=== PATIENT | male | born 1990 | race Caucasian/White ===

== ENCOUNTER 2017-07-11 16:54 | Emergency (ER) | payer OTHER ==
[~2017-07-11] VITALS: Ht 180.3 cm; Wt 107.0 kg
[2017-07-11 17:10] VITALS: TEMP 36.8; Ht 180.3 cm; Wt 107.0 kg
[2017-07-11] MEDS ORDERED: HYDROCODONE/ACETAMOPHEN 5/325MG TAB PO STA (17:20)
[2017-07-11] MEDS ORDERED: CYCLOBENZAPRINE HCL 10 MG TAB PO STA (17:20)
[2017-07-11] MEDS ORDERED: KETOROLAC TROMETHAMINE 60 MG/2 ML VIAL IM STA (17:20)
[2017-07-11] MEDS ORDERED: MoRPHine SULFATE 10 MG/ML CARP/VIAL IM STA (18:22)
--- NOTE | 2017-07-11 18:23 | DIAGNOSTIC IMAGING REPORT ---
L-SPINE MIN 4 VIEWS ROUTINE CLINICAL HISTORY: Low back pain. Possible injury. COMPARISON: None FINDINGS: Alignment of the lumbar spine is anatomic. Vertebral body heights are maintained. There is no fracture or suspicious lesion. There is minimal disc space noted with osteophytosis at L5-S1. Facet joints are intact. IMPRESSION: 1. No acute lumbar spine fracture or subluxation. 2. Mild disc space narrowing and osteophytosis at L5-S1. Electronically signed by: Raul Youssef M.D. 07/11/2017 6:21 PM Dictated Date/Time: 07/11/2017 6:20 PM
[2017-07-11] MEDS ORDERED: ONDANSETRON 4MG OD TAB PO ONE (18:30)
--- NOTE | 2017-07-11 19:15 | EMERGENCY ROOM VISIT NOTE ---
ED Visit Note First contact with patient: 17:15 CHIEF COMPLAINT: Low back pain HISTORY OF PRESENT ILLNESS: This 26-year-old male presents the ER with chief complaint of low back pain. The patient states that he has been playing a lot of basketball over the last 3 weeks. On Thursday he started getting pain in his low back and it has been getting progressively worse. He states it hurts with any type of movement or with walking. The patient states he had initially injured his back when he was in high school and had some chronic pain but has not had any pain recently. The patient denies any pain radiating down his legs or any numbness and tingling in his legs. The patient denies any loss of bowel or bladder control. The patient denies any urinary symptoms of frequency, urgency, dysuria or hematuria. REVIEW OF SYSTEMS:6 system review was performed and was negative unless stated otherwise in history of present illness. PMH: The patient is healthy; prior back injury as a teenager. SOCIAL HISTORY: Patient denies tobacco use. The patient does admit to smoking marijuana occasionally. He also admits to occasional alcohol use. PHYSICAL EXAM: Vital Signs normal: Reviewed Nurse's notes and agree. GEN.: 26- year-old male appears uncomfortable secondary to back pain. MENTAL STATUS: Alert and oriented in no acute distress. LUMBAR SPINE: No gross bony abnormality noted. Patient is nontender to palpation over the spinous processes. He is tender to palpation over the paravertebral regions bilaterally.. Decreased range of motion in all directions secondary to pain. Muscle strength is 5 out of 5 bilateral lower extremities and symmetrical. NEURO : Patient is able to heel and toe walk without difficulty. I lateral patellar and Achilles reflexes are 2+. Sensation is intact to pinprick bilateral lower extremities. Negative straight leg raise bilaterally. EMERGENCY DEPARTMENT COURSE: The patient was evaluated. Patient was given Toradol 60 mg IM, [place] 5/325 mg 2 tablets by mouth for pain as well as Flexeril 10 mg by mouth. The patient was reevaluated and stated he was still in significant pain and therefore he was given morphine 6 mg IM and Zofran 4 mg ODT for associated nausea. X-ray of the lumbar spine was ordered and interpreted by the radiologist and myself. DIAGNOSTICS:L-SPINE MIN 4 VIEWS ROUTINE CLINICAL HISTORY: Low back pain. Possible injury. COMPARISON: None FINDINGS: Alignment of the lumbar spine is anatomic. Vertebral body heights are maintained. There is no fracture or suspicious lesion. There is minimal disc space noted with osteophytosis at L5-S1. Facet joints are intact. IMPRESSION: 1. No acute lumbar spine fracture or subluxation. 2. Mild disc space narrowing and osteophytosis at L5-S1. Electronically signed by: Raul Youssef M.D. 07/11/2017 6:21 PM Dictated Date/Time: 07/11/2017 6:20 PM The patient was informed of the findings. The patient was again reevaluated. He was able to stand up on his own and walk with pain but was better than prior. The patient was discharged home in stable condition. DIAGNOSIS: Lumbar strain DISCHARGE INSTRUCTIONS AND TREATMENT: Ibuprofen 600 mg every 6 hours with food for pain. Rx is given for Percocet 5/325 1-2 tablets every 6 hours as needed for more severe pain. Do not drive while taking the Percocet patient was also given Rx for Flexeril 10 mg. One tablet p.o. every 8 hours for muscle spasms. Dispense [address] taking the Flexeril. Avoid staying in any one position for an extended period of time. If symptoms persist or worsen, follow up with [facility] on Thursday. Current/Historical Medications No Active Prescriptions or Reported Meds Allergies Coded Allergies: No Known Allergies (Unverified , 07/11/17) Vital Signs Date Time Temp Pulse Resp B/P (MAP) Pulse Ox O2 Delivery O2 Flow Rate FiO2 07/11/17 18:43 73 16 107/56 97 Room Air 07/11/17 17:10 36.8 74 16 143/80 98 Room Air Medications Administered Medications (Trade) Dose Ordered Sig/Darin Route Start Time Stop Time Status Last Admin Dose Admin Ketorolac Tromethamine (Toradol Inj) 60 mg NOW STAT IM 07/11/17 17:20 07/11/17 17:24 DC 07/11/17 17:30 60 MG Cyclobenzaprine HCl (Flexeril Tab) 10 mg NOW STAT PO 07/11/17 17:20 07/11/17 17:24 DC 07/11/17 17:28 10 MG Acetaminophen/ Hydrocodone Bitart ([place] 5/325 Tab) 2 tab NOW STAT PO 07/11/17 17:20 07/11/17 17:24 DC 07/11/17 17:29 2 TAB Morphine Sulfate (MoRPHine SULFATE INJ) 6 mg NOW STAT IM 07/11/17 18:22 07/11/17 18:23 DC 07/11/17 18:42 6 MG Ondansetron HCl (Zofran Odt) 4 mg ONE ONCE PO 07/11/17 18:30 07/11/17 18:31 DC 07/11/17 18:42 4 MG Departure Information Prescriptions No Active Prescriptions or Reported Meds Patient Instructions [facility]
[2017-07-11] MEDS ORDERED: CYCL10TA6 PO (19:18)
[2017-07-11] MEDS ORDERED: OXYC-57 PO (19:18)
[2017-07-11] MEDS ORDERED: PERCOCET HOME PACK PO ONE (19:30)
[2017-07-11 19:39] VITALS: BP 112/68; PULSE 67; O2SAT 95
== END 2017-07-11 19:35 | disposition home or self-care (01) ==
LOC: C.EDB 16:56 → C.EDD 19:35
DX: S39.012A Strain of muscle, fascia and tendon of lower back, initial encounter (principal); F12.90 Cannabis use, unspecified, uncomplicated; Z72.89 Other problems related to lifestyle; X58.XXXA Exposure to other specified factors, initial encounter